=== PATIENT | female | born 1995 | race Caucasian/White ===

== ENCOUNTER 2016-10-19 22:13 | Inpatient (IN) | payer MEDICAID ==
[~2016-10-19] VITALS: Ht 180.3 cm; Wt 88.5 kg
--- OUTSIDE RECORDS SUMMARY | 2016-10-19 22:18 | XMS REPORT | Continuity of Care Document ---
Author Author [facility] Organization [facility] Address Unknown Phone Unavailable Care Team Providers Care Care Partner Name Role Phone No Pcp, Na PCP Unavailable Source Comments Some departments are not documenting in the electronic medical record. If you do not see the information that you expected, contact Release of Information in the Health Information Management department at [phone] for further assistance in locating additional records.[facility] Active Allergies and Adverse Reactions No Known Allergies Current Medications Prescription Sig. Disp. Refills Start End Date Status Date NO HOME MEDICATIONS Active Active Problems Problem Noted Date Sprain of metacarpophalangeal joint of right hand 11/15/2014 Social History Tobacco Use Types Packs/Day Years Used Date Never Smoker Smokeless Tobacco: Never Used Last Filed Vital Signs Vital Sign Reading Time Taken Blood Pressure 112/71 11/15/2014 8:39 AM CDT Pulse 76 11/15/2014 8:39 AM CDT Temperature - - Respiratory Rate - - Height 1.778 m (5' 10") 11/15/2014 8:39 AM CDT Weight 76.204 kg (168 lb) 11/15/2014 8:39 AM CDT Body Mass Index 24.11 11/15/2014 8:39 AM CDT Oxygen Saturation - - Plan of Care Health Maintenance Due Date Last Done Comments Physical (Comprehensive) 2002 Exam Hpv Vaccines (#1) 2006 Pertussis Vaccine 2006 Tetanus Vaccine 2012 Influenza Vaccine 04/08/2016 Results from Last 3 Months Not on file
[2016-10-19 22:27] VITALS: BP 138/79
[2016-10-19 22:48] LABS: BILIRUBIN,URINE NEGATIVE (NEGATIVE); KETONES,URINE NEGATIVE (NEGATIVE); LEUKOCYTE ESTERASE ,URINE 1+ (NEGATIVE); NITRITE,URINE NEGATIVE (NEGATIVE); PH,URINE 7 (5-9); PROTEIN,URINE NEGATIVE (NEGATIVE); UROBILINOGEN,URINE NORMAL (NORMAL)
[2016-10-19] MEDS ORDERED: PREN-37 PO (22:53)
[2016-10-19 22:55] LABS: SQUAMOUS EPITHELIAL CELL,UR 0-2 /HPF; WBC,URINE 0-2 /HPF
[2016-10-20] VITALS (60 sets, daily range): BP systolic 95–155; BP diastolic 47–88
--- NOTE | 2016-10-20 01:05 | History & Physical ---
History and Physical this patient is a 21-year-old G1 white female with an EDC of October 30, 2016. She presented with complaint of rupture membranes. She was celio with some regularity as well. Her has been uncomplicated. Her GBS culture after 35 weeks gestation was negative. Allergies are to "oxycodeine" which causes facial swelling medications are vitamins and Tylenol Past medical history, past surgical history, obstetric history, family history, and social histories are per the antepartum record HEENT exam is normal Neck is supple no lymphadenopathy no thyromegaly Abdomen is gravid soft nontender nondistended Extremities show clubbing or cyanosis. There is no Homans sign. Pelvic exam is pending Assessment and plan term at 38-1/2 weeks gestation with spontaneous rupture membranes and in early labor. Plan initially is expectant management. Expectation is for vaginal delivery. term at 38 and 3/7 weeks gestation with rupture membranes and spontaneous labor. Allergies and Home Medications Allergies Uncoded Allergies: OXYCOD (Allergy, Unknown, 04/09/16) Home Medications Vit/Iron Fumarate/FA 1 Each Tablet 1 EACH PO DAILY (Reported) ELEANOR INGRAM MD Oct 20, 2016 1:05 am
[2016-10-20 03:23] LABS: BASOPHILS % (AUTO) 0 % (0-10); EOSINOPHILS % (AUTO) 0 % (0-10); LYMPHOCYTES # (AUTO) 1.9 X 10^3 (1.0-4.0); LYMPHOCYTES % (AUTO) 23 % (12-44); MEAN CORPUSCULAR HEMOGLOBIN 31 PG (25-34); MEAN CORPUSCULAR HGB CONC 34 G/DL (32-36); MEAN CORPUSCULAR VOLUME 91 FL (80-99); MEAN PLATELET VOLUME 10.4 FL (7.4-10.4); MONOCYTES # (AUTO) 0.6 X 10^3 (0.0-1.0); MONOCYTES % (AUTO) 8 % (0-12); NEUTROPHILS # (AUTO) 5.7 X 10^3 (1.8-7.8); NEUTROPHILS % (AUTO) 69 % (42-75); PLATELET COUNT 200 10^3/uL (130-400); RED BLOOD COUNT 3.63 10^6/uL (4.35-5.85); RED CELL DISTRIBUTION WIDTH 13.2 % (10.0-14.5); WHITE BLOOD COUNT 8.2 10^3/uL (4.3-11.0)
[2016-10-20] MEDS ORDERED: OXYTOCIN/NORMAL SALINE 500 ML IV SCH ×2 (05:00→16:28)
[2016-10-20] MEDS: D5 LR IV SOLUTION 1,000 ML IV SCH ×2 (05:33→12:35)
[2016-10-20] MEDS ORDERED: CATHETER FLUSH 10 ML SYR IV SCH (06:00)
[2016-10-20] MEDS ORDERED: FLU TRIvalent (5 YOA+) 2016-17 (AFLURIA) 0.5 ML IM ONE (07:15)
[2016-10-20] MEDS ORDERED: SUFENTA 0.6MCG/ML BUPIVA 0.125 100 ML ONE (07:43)
[2016-10-20] MEDS ORDERED: LACTATED RINGERS 1,000 ML IV ONE ×2 (07:43→09:36)
--- NOTE | 2016-10-20 07:48 | Progress Note-Standard ---
Standard Progress Note Progress Notes/Assess & Plan Progress/Assessment & Plan patient is without complaint. She has had a large gush of amniotic fluid in the night. Contractions have increased significantly. Patient is being admitted now with Pitocin. patient denies bleeding. Patient feels baby moving. monitor shows normal heart rate pattern with accelerations and no decelerations. Laboratory Tests 10/20/16 03:05 Vital Signs Date Time Temp Pulse Resp B/P Pulse Ox O2 Delivery O2 Flow Rate FiO2 10/19/16 22:27 98.2 70 18 138/79 Room Air Vital signs are stable. Patient is afebrile. Abdomen is gravid soft nontender nondistended. Extreme show clubbing cyanosis. There is no Homans sign. Pelvic exam is pending Assessment and plan term in early labor. He is being augmented now with Pitocin. Epidural be allowed at Her request.. anticipation is for vaginal delivery. ELEANOR INGRAM MD Oct 20, 2016 7:48 am
[2016-10-20] MEDS ORDERED: BUPIVACAINE 0.25% 30 ML (SENSORCAINE) VIAL ONE ×2 (08:05→15:08)
[2016-10-20] MEDS: EPIDURAL (SUFENTA 0.6MCG/ML BUPIVA 0.125%) 100 ML BAG EPI SCH ×2 (08:27→15:24)
[2016-10-20] MEDS ORDERED: LIDOCAINE PF 2% 10 ML (XYLOCAINE) AMP ONE (09:44)
[2016-10-20] MEDS ORDERED: NALOXONE 0.4 MG/ML 1 ML (NARCAN) VIAL IV PRN (09:45)
[2016-10-20] MEDS ORDERED: BUPIVACAINE 0.25% 30 ML (SENSORCAINE) VIAL INJ ONE ×2 (09:45→16:00)
[2016-10-20] MEDS ORDERED: LIDOCAINE PF 2% 10 ML (XYLOCAINE) AMP INJ ONE (14:30)
[2016-10-20] MEDS ORDERED: LIDOCAINE/EPI 1%-1:200,000 (XYLOCAINE) 30 ML VIAL ONE (15:29)
--- NOTE | 2016-10-20 16:00 | Progress Note-Standard ---
Standard Progress Note Progress Notes/Assess & Plan Progress/Assessment & Plan Anesthesia Note ([id number]) Called for increased pain on the right side. 10 ml 0.25% bupivicaine in divided doses. Minimal improvement of pain on right side with contractions. She is dilated close to an [address] Silverio. Will be available if needed but at this point replacing or redosing is probably not a good option. ASIA ARANGO DO Oct 20, 2016 16:00
[2016-10-20] MEDS ORDERED: TETANUS,DIPTH,PERTUSS P/F (BOOSTRIX) 0.5 ML VIAL IM ONE (16:30)
[2016-10-20] MEDS ORDERED: oxyCODONE/APAP 10/325MG (PERCOCET 10) TABLET PO PRN (16:30)
[2016-10-20] MEDS ORDERED: BENZOCAINE/MENTHOL (DERMOPLAST) 56 ML CAN TP PRN (16:30)
[2016-10-20] MEDS ORDERED: MEASLES,MUMPS,RUBELLA 1 EA INJ SC ONE (16:30)
[2016-10-20] MEDS ORDERED: HYDR-3876 PO (16:47)
[2016-10-20] MEDS ORDERED: DOCU100C37 PO (16:47)
[2016-10-20] MEDS ORDERED: IBUP-1780 PO (16:47)
--- NOTE | 2016-10-20 16:48 | Discharge Instructions ---
Discharge Instructions Discharge Medications New, Converted or Re-Newed RX: RX on Chart Patient Instructions Patient Instructions: as instructed Return to The Hospital For: as instructed Activity & Diet Discharge Diet: No Restrictions Activity as Tolerated: No Orders-Post D/C & Referrals Follow Up Appt: Call to make follow up appt. for patient in 4 weeks. Activity Per routine post vaginal delivery instructions. Diet as tolerated Patient may shower or tub bathe as desired. ELEANOR INGRAM MD Oct 20, 2016 4:48 pm
[2016-10-20] MEDS: KETOROLAC 30 MG/ML VIAL IV SCH (17:36)
[2016-10-20] MEDS: HYDROcodone/APAP 10 MG/325 MG (LORTAB) TAB PO PRN (18:50)
[2016-10-20] MEDS: DOCUSATE SODIUM 100 MG (COLACE) CAP PO SCH (22:18)
[2016-10-21 00:57] VITALS: BP 113/53
[2016-10-21] MEDS: KETOROLAC 30 MG/ML VIAL IV SCH ×3 (00:57→08:32)
[2016-10-21 05:00] VITALS: BP 126/70
--- NOTE | 2016-10-21 07:55 | Progress Note-Standard ---
Standard Progress Note Progress Notes/Assess & Plan Progress/Assessment & Plan patient is without complaint. She has had a large gush of amniotic fluid in the night. Contractions have increased significantly. Patient is being admitted now with Pitocin. patient denies bleeding. Patient feels baby moving. monitor shows normal heart rate pattern with accelerations and no decelerations. Laboratory Tests 10/20/16 03:05 Vital Signs Date Time Temp Pulse Resp B/P Pulse Ox O2 Delivery O2 Flow Rate FiO2 10/19/16 22:27 98.2 70 18 138/79 Room Air Vital signs are stable. Patient is afebrile. Abdomen is gravid soft nontender nondistended. Extreme show clubbing cyanosis. There is no Homans sign. Pelvic exam is pending Assessment and plan term in early labor. He is being augmented now with Pitocin. Epidural be allowed at Her request.. anticipation is for vaginal delivery. October 21, 2016 Patient is without complaint. She is ambulating, voiding, tolerating fairly well, denies chest pain, denies shortness of breath, denies headache, denies nausea vomiting, patient has good pain control. Vital Signs Date Time Temp Pulse Resp B/P Pulse Ox O2 Delivery O2 Flow Rate FiO2 10/21/16 05:00 99.1 73 18 126/70 98 Room Air 10/21/16 00:57 98.0 65 18 113/53 98 Room Air 10/20/16 20:37 98.1 64 18 119/59 Room Air 10/20/16 20:22 75 18 114/59 Room Air 10/20/16 20:07 61 18 104/58 Room Air 10/20/16 19:52 98.4 74 18 106/53 Room Air 10/20/16 19:37 65 18 108/51 Room Air 10/20/16 18:55 82 18 129/63 Room Air 10/20/16 18:40 77 18 109/53 Room Air 10/20/16 18:25 83 18 117/66 Room Air 10/20/16 18:10 75 18 120/64 Room Air 10/20/16 17:55 98.6 76 18 126/63 Room Air 10/20/16 17:15 Non Rebreather 10.00 10/20/16 17:00 Non Rebreather 10.00 10/20/16 16:45 Non Rebreather 10.00 10/20/16 16:30 Non Rebreather 10.00 10/20/16 16:15 75 18 137/71 100 Non Rebreather 10.00 10/20/16 16:00 68 18 127/66 100 Non Rebreather 10.00 10/20/16 15:45 72 18 132/73 100 Non Rebreather 10.00 10/20/16 15:30 98.3 77 18 134/88 99 Non Rebreather 10.00 10/20/16 15:26 100 Non Rebreather 10.00 10/20/16 15:15 90 18 134/63 99 Room Air 10/20/16 15:00 96 18 132/62 100 Room Air 10/20/16 14:45 72 18 125/64 98 Room Air 10/20/16 14:30 72 18 125/64 98 Room Air 10/20/16 14:15 80 18 123/56 98 Room Air 10/20/16 14:00 75 18 123/56 98 Room Air 10/20/16 13:50 97.8 10/20/16 13:45 80 18 128/72 98 Room Air 10/20/16 13:30 76 18 126/73 98 Room Air 10/20/16 13:15 88 18 120/59 97 Room Air 10/20/16 13:00 73 18 112/53 97 Room Air 10/20/16 12:45 75 18 117/59 97 Room Air 10/20/16 12:30 80 18 107/54 99 Room Air 10/20/16 12:15 97.4 79 18 101/49 100 Room Air 10/20/16 12:00 61 18 101/49 100 Room Air 10/20/16 11:40 65 18 99/50 99 Room Air 10/20/16 11:25 72 18 95/49 100 Room Air 10/20/16 11:10 71 18 110/51 100 Room Air 10/20/16 10:55 69 18 98/47 100 Room Air 10/20/16 10:40 97.1 74 18 110/55 100 Room Air 10/20/16 10:25 63 18 102/49 100 Room Air 10/20/16 10:20 87 18 112/58 100 Room Air 10/20/16 10:15 62 18 155/70 100 Room Air 10/20/16 10:10 63 18 101/56 100 Room Air 10/20/16 10:05 62 18 155/70 100 Room Air 10/20/16 10:00 66 18 152/84 100 Room Air 10/20/16 09:55 67 18 131/63 100 Room Air 10/20/16 09:35 71 18 135/71 100 Room Air 10/20/16 09:20 68 18 111/53 99 Room Air 10/20/16 09:15 65 18 133/61 99 Room Air 10/20/16 09:10 65 18 110/54 100 Room Air 10/20/16 09:05 67 18 131/63 100 Room Air 10/20/16 09:00 68 18 132/63 100 Room Air 10/20/16 08:55 64 18 125/64 100 Room Air 10/20/16 08:50 64 18 124/67 100 Room Air 10/20/16 08:45 62 18 122/58 100 Room Air 10/20/16 08:40 57 18 120/60 100 Room Air 10/20/16 08:35 59 18 119/58 100 Room Air 10/20/16 08:30 61 18 119/72 100 Room Air 10/20/16 08:25 71 18 145/62 100 Room Air 10/20/16 08:20 71 18 110/55 Room Air 10/20/16 08:15 55 18 115/59 Room Air 10/20/16 08:11 67 18 133/80 Room Air 10/20/16 08:05 62 18 130/62 Room Air 10/20/16 07:55 97.1 61 18 131/63 Room Air I & O 10/21/16 07:00 Intake Total 500 ml Balance 500 ml vital signs are stable. Patient is afebrile. Fundus is firm below the umbilicus nontender. Extremities show clubbing cyanosis. There is no Homans sign. There is some pretibial pitting edema that is normal. Assessment and plan day number 1 status post term spontaneous vaginal delivery well. Routine convalescence care today and allow discharge home ELEANOR INGRAM MD Oct 21, 2016 7:55 am
[2016-10-21] MEDS ORDERED: TETANUS,DIPTH,PERTUSS P/F (BOOSTRIX) 0.5 ML VIAL IM ONE (09:28)
[2016-10-21] MEDS: DOCUSATE SODIUM 100 MG (COLACE) CAP PO SCH ×2 (09:32→21:07)
[2016-10-21 09:37] VITALS: BP 105/58
--- NOTE | 2016-10-21 11:45 | PROCEDURE REPORT ---
PROCEDURE PHYSICIAN: ELEANOR INGRAM DELIVERY NOTE: DATE OF DELIVERY: 10/20/2016 DATE OF DICTATION: 10/20/2016 The patient delivered by term spontaneous vaginal delivery of a viable female infant with Apgars of 8 and 9 at one and five minutes respectfully. Weight was 7 pounds, 2 ounces. time was 1717. There was a single nuchal cord that was easily released. The was bulb suctioned on delivery of the head and again on completion of delivery. Episiotomy was cut at the patient's request as she was unable to expel the baby through the perineum. The posterior vaginal wall had split and torn and the patient was bleeding, although not excessively, she just could not creat enough expulsive effort to push the baby through the perineum. Episiotomy was cut with the next push the patient delivered the baby. The cord, when pulseless, was doubly clamped, father cut the cord and baby was passed to mom's abdomen. The placenta delivered spontaneously Guillermo. It was normal with a three-vessel cord. The cervix, vagina, rectum and perineum were examined and found intact except for the midline episiotomy and an extension at the apex of the episiotomy running about 4-1/2 to 5 cm up the posterior vaginal wall. This entire defect was repaired with 2 sutures of 3-0 Vicryl in the usual manner without difficulty to good hemostasis and good cosmetic effect. Estimated blood loss was around 300 mL. The patient tolerated the delivery and repair well. The patient remained in the LDR for recovery. The baby remained with the mom. Job ID: [id number] Dictated Date: 10/20/2016 17:49:26 [employer] Specialist Date: 10/21/2016 11:40:48 / shahram
[2016-10-21] MEDS ORDERED: IBUPROFEN 800 MG (MOTRIN) TAB PO ONE (12:27)
[2016-10-21 13:11] VITALS: BP 130/78
[2016-10-21] MEDS: IBUPROFEN 800 MG (MOTRIN) TAB PO SCH ×2 (13:11→18:51)
[2016-10-21] MEDS: HYDROcodone/APAP 10 MG/325 MG (LORTAB) TAB PO PRN ×2 (13:15→18:55)
--- NOTE | 2016-10-21 14:49 | Anesthesia-Regional Post-Op ---
Regional Patient Condition Mental Status: Alert, Oriented x3 Circulation: Same as Pre-Op Headache: Absent Sensation: Full Recovery Motor Block: Absent Post Op Complications Complications None Follow Up Care/Instructions Patient Instructions None needed. Anesthesia/Patient Condition Patient is doing well, no complaints, stable vital signs, no apparent adverse anesthesia problems. No complications reported per nursing. BELL MATIAS CRNA Oct 21, 2016 14:49
[2016-10-21 20:20] VITALS: BP 113/56
[2016-10-22 02:00] VITALS: BP 107/55
[2016-10-22] MEDS: IBUPROFEN 800 MG (MOTRIN) TAB PO SCH ×3 (02:14→15:08)
--- NOTE | 2016-10-22 07:58 | Progress Note-Standard ---
Standard Progress Note Progress Notes/Assess & Plan Progress/Assessment & Plan patient is without complaint. She has had a large gush of amniotic fluid in the night. Contractions have increased significantly. Patient is being admitted now with Pitocin. patient denies bleeding. Patient feels baby moving. monitor shows normal heart rate pattern with accelerations and no decelerations. Laboratory Tests 10/20/16 03:05 Vital Signs Date Time Temp Pulse Resp B/P Pulse Ox O2 Delivery O2 Flow Rate FiO2 10/19/16 22:27 98.2 70 18 138/79 Room Air Vital signs are stable. Patient is afebrile. Abdomen is gravid soft nontender nondistended. Extreme show clubbing cyanosis. There is no Homans sign. Pelvic exam is pending Assessment and plan term in early labor. He is being augmented now with Pitocin. Epidural be allowed at Her request.. anticipation is for vaginal delivery. October 21, 2016 Patient is without complaint. She is ambulating, voiding, tolerating fairly well, denies chest pain, denies shortness of breath, denies headache, denies nausea vomiting, patient has good pain control. Vital Signs Date Time Temp Pulse Resp B/P Pulse Ox O2 Delivery O2 Flow Rate FiO2 10/21/16 05:00 99.1 73 18 126/70 98 Room Air 10/21/16 00:57 98.0 65 18 113/53 98 Room Air 10/20/16 20:37 98.1 64 18 119/59 Room Air 10/20/16 20:22 75 18 114/59 Room Air 10/20/16 20:07 61 18 104/58 Room Air 10/20/16 19:52 98.4 74 18 106/53 Room Air 10/20/16 19:37 65 18 108/51 Room Air 10/20/16 18:55 82 18 129/63 Room Air 10/20/16 18:40 77 18 109/53 Room Air 10/20/16 18:25 83 18 117/66 Room Air 10/20/16 18:10 75 18 120/64 Room Air 10/20/16 17:55 98.6 76 18 126/63 Room Air 10/20/16 17:15 Non Rebreather 10.00 10/20/16 17:00 Non Rebreather 10.00 10/20/16 16:45 Non Rebreather 10.00 10/20/16 16:30 Non Rebreather 10.00 10/20/16 16:15 75 18 137/71 100 Non Rebreather 10.00 10/20/16 16:00 68 18 127/66 100 Non Rebreather 10.00 10/20/16 15:45 72 18 132/73 100 Non Rebreather 10.00 10/20/16 15:30 98.3 77 18 134/88 99 Non Rebreather 10.00 10/20/16 15:26 100 Non Rebreather 10.00 10/20/16 15:15 90 18 134/63 99 Room Air 10/20/16 15:00 96 18 132/62 100 Room Air 10/20/16 14:45 72 18 125/64 98 Room Air 10/20/16 14:30 72 18 125/64 98 Room Air 10/20/16 14:15 80 18 123/56 98 Room Air 10/20/16 14:00 75 18 123/56 98 Room Air 10/20/16 13:50 97.8 10/20/16 13:45 80 18 128/72 98 Room Air 10/20/16 13:30 76 18 126/73 98 Room Air 10/20/16 13:15 88 18 120/59 97 Room Air 10/20/16 13:00 73 18 112/53 97 Room Air 10/20/16 12:45 75 18 117/59 97 Room Air 10/20/16 12:30 80 18 107/54 99 Room Air 10/20/16 12:15 97.4 79 18 101/49 100 Room Air 10/20/16 12:00 61 18 101/49 100 Room Air 10/20/16 11:40 65 18 99/50 99 Room Air 10/20/16 11:25 72 18 95/49 100 Room Air 10/20/16 11:10 71 18 110/51 100 Room Air 10/20/16 10:55 69 18 98/47 100 Room Air 10/20/16 10:40 97.1 74 18 110/55 100 Room Air 10/20/16 10:25 63 18 102/49 100 Room Air 10/20/16 10:20 87 18 112/58 100 Room Air 10/20/16 10:15 62 18 155/70 100 Room Air 10/20/16 10:10 63 18 101/56 100 Room Air 10/20/16 10:05 62 18 155/70 100 Room Air 10/20/16 10:00 66 18 152/84 100 Room Air 10/20/16 09:55 67 18 131/63 100 Room Air 10/20/16 09:35 71 18 135/71 100 Room Air 10/20/16 09:20 68 18 111/53 99 Room Air 10/20/16 09:15 65 18 133/61 99 Room Air 10/20/16 09:10 65 18 110/54 100 Room Air 10/20/16 09:05 67 18 131/63 100 Room Air 10/20/16 09:00 68 18 132/63 100 Room Air 10/20/16 08:55 64 18 125/64 100 Room Air 10/20/16 08:50 64 18 124/67 100 Room Air 10/20/16 08:45 62 18 122/58 100 Room Air 10/20/16 08:40 57 18 120/60 100 Room Air 10/20/16 08:35 59 18 119/58 100 Room Air 10/20/16 08:30 61 18 119/72 100 Room Air 10/20/16 08:25 71 18 145/62 100 Room Air 10/20/16 08:20 71 18 110/55 Room Air 10/20/16 08:15 55 18 115/59 Room Air 10/20/16 08:11 67 18 133/80 Room Air 10/20/16 08:05 62 18 130/62 Room Air 10/20/16 07:55 97.1 61 18 131/63 Room Air I & O 10/21/16 07:00 Intake Total 500 ml Balance 500 ml vital signs are stable. Patient is afebrile. Fundus is firm below the umbilicus nontender. Extremities show clubbing cyanosis. There is no Homans sign. There is some pretibial pitting edema that is normal. Assessment and plan day number 1 status post term spontaneous vaginal delivery well. Routine convalescence care today and allow discharge home 2016 Patient is without complaint. She is ambulating, voiding, tolerating by mouth, patient requesting discharge home. Vital Signs Date Time Temp Pulse Resp B/P Pulse Ox O2 Delivery O2 Flow Rate FiO2 10/22/16 02:00 97.0 62 16 107/55 95 Room Air 10/21/16 20:20 97.9 73 18 113/56 99 Room Air 10/21/16 13:11 98.6 73 18 130/78 99 Room Air 10/21/16 09:37 98.2 83 18 105/58 99 Room Air vital signs are stable. Patient is afebrile. Fundus firm below the umbilicus is nontender. Extreme show clubbing cyanosis. There is no Homans sign. Assessment and plan day number 2. Spontaneous vaginal delivery doing well. Plan is for discharge home with follow-up in clinic. Final Diagnosis term spontaneous vaginal delivery ELEANOR INGRAM MD Oct 22, 2016 7:58 am
[2016-10-22] MEDS: DOCUSATE SODIUM 100 MG (COLACE) CAP PO SCH (08:50)
[2016-10-22 08:53] VITALS: BP 123/81
== END 2016-10-22 15:10 | disposition home or self-care (01) | DRG 775 ==
LOC: LDRP 22:13 → WSo 22:13 → LDRP 10-20 02:30
PROVIDERS: ADMIT Obstetrics & Gynecology; ATTEND Obstetrics & Gynecology
PROC: 10E0XZZ Delivery of Products of Conception, External Approach (ICD-10-PCS; principal; 2016-10-20)
PROC: 0W8NXZZ Division of Female Perineum, External Approach (ICD-10-PCS; 2016-10-20)
PROC: 0HQ9XZZ Repair Perineum Skin, External Approach (ICD-10-PCS; 2016-10-20)
DX: O42.02 Full-term premature rupture of membranes, onset of labor within 24 hours of rupture (principal); O70.0 First degree perineal laceration during delivery; O69.81X0 Labor and delivery complicated by cord around neck, without compression, not applicable or unspecified; Z3A.38 38 weeks gestation of pregnancy; Z37.0 Single live birth; Z23 Encounter for immunization
CPT/HCPCS: 36415; 81000; 85025; 86850; 86900; 86901; 88307; 90715; 99212